=== PATIENT | male | born 1980 | race Caucasian/White ===

== ENCOUNTER 2020-06-27 20:18 | Inpatient (IN) | payer MEDICAID ==
[~2020-06-27] VITALS: Ht 185.4 cm; Wt 73.0 kg
[~2020-06-27 20:18] MED LIST: DIVA-80 PO; PANT-31 PO; TRAZ-257 PO
[2020-06-27 21:04] LABS: BASOPHILS % (AUTO) 1.2 % (0.0-2.0); EOSINOPHILS % (AUTO) 5.1 % (1.0-6.0); HEMATOCRIT 42.5 % (41-53); HEMOGLOBIN 14.3 g/dL (13.5-17.5); LYMPHOCYTES % (AUTO) 17.8 % (22.0-44.0); MEAN CORPUSCULAR HEMOGLOBIN 30.1 pg (26.0-34.0); MEAN CORPUSCULAR HGB CONC 33.7 G/dL (31.0-37.0); MEAN CORPUSCULAR VOLUME 89 fL (80-100); MONOCYTES # (AUTO) 0.4 K/uL (0.1-1.0); MONOCYTES % (AUTO) 6.8 % (2.0-9.0); NEUTROPHILS # (AUTO) 3.9 K/uL (1.8-7.7); NEUTROPHILS % (AUTO) 69.1 % (40.0-70.0); PLATELET COUNT (AUTO) 212 K/uL (150-450); RED BLOOD CELL COUNT(AUTO) 4.76 MIL/uL (4.50-5.90); RED CELL DISTRIBUTION WIDTH 13.1 % (11.5-14.5)
[2020-06-27 21:13] LABS: ANION GAP 11 mmol/L (8-16); CALCIUM, TOTAL 8.7 mg/dL (8.8-10.5); CARBON DIOXIDE 26 mmol/L (22-29); CHLORIDE 101 mmol/L (98-107); CREATININE 0.94 mg/dL (0.60-1.30); GLOMERULAR FILTR. RATE CALC > 60 mL/min (>60); GLUCOSE,RANDOM 145 mg/dL (70-110); POTASSIUM 3.8 mmol/L (3.5-5.1); SODIUM SERUM 138 mmol/L (136-145); UREA NITROGEN, BLOOD 14 mg/dL (7-18)
[2020-06-27 21:19] LABS: ALANINE AMINOTRANSFERASE 313 U/L (12-78); ALBUMIN 3.6 g/dL (3.4-5.0); ALKALINE PHOSPHATASE 95 U/L (46-116); ASPARTATE AMINOTRANSFERASE 217 U/L (15-37); BILIRUBIN,TOTAL 1.9 mg/dL (0.1-1.0)
[2020-06-27 21:30] LABS: VALPROIC ACID < 3 mcg/mL (50-100)
[2020-06-27] MEDS ORDERED: LORazepam 2 MG TABLET PO ONE (21:30)
[2020-06-27] MEDS ORDERED: HALOPERIDOL 5 MG TABLET PO ONE (21:30)
[2020-06-27] MEDS ORDERED: ZOLPIDEM TARTRATE 10 MG TABLET PO PRN (21:45)
[2020-06-27] MEDS ORDERED: HALOPERIDOL 5 MG TABLET PO PRN (21:45)
[2020-06-27 21:55] LABS: COVID AG,FIA SOURCE NASOPHARYNGEAL
[2020-06-28 03:59] VITALS: BP 113/75
[2020-06-28] MEDS ORDERED: PETROLATUM,WHITE 28 GM JELLY TP PRN (09:45)
[2020-06-28] MEDS ORDERED: BACITRACIN 28 GM OINTMENT TP PRN (09:45)
[2020-06-28] MEDS ORDERED: BENZOCAINE/MENTHOL LOZENGE PO PRN (09:45)
[2020-06-28] MEDS ORDERED: CloNIDine HCL 0.1 MG TABLET PO PRN (09:45)
[2020-06-28] MEDS ORDERED: MAGNESIUM HYDROXIDE SUSPENSION 30 ML UDCUP PO PRN (09:45)
[2020-06-28] MEDS ORDERED: DOCUSATE SODIUM 100 MG CAPSULE PO PRN (09:45)
[2020-06-28] MEDS ORDERED: LOPERAMIDE HCL 2 MG CAPSULE PO PRN (09:45)
[2020-06-28] MEDS ORDERED: OMEPRAZOLE 20 MG CAPSULE PO PRN (09:45)
[2020-06-28] MEDS ORDERED: ACETAMINOPHEN 325 MG TABLET PO PRN (09:45)
[2020-06-28] MEDS ORDERED: ALBUTEROL SULFATE HFA 90 MCG/PUFF 8 GM INHALER IH PRN (09:45)
[2020-06-28] MEDS ORDERED: IBUPROFEN 600 MG TABLET PO PRN (09:45)
[2020-06-28] MEDS ORDERED: MAG HYDROX/AL HYDROX/SIMETH ES 30 ML SUSPENSION UDCUP PO PRN (09:45)
[2020-06-28] MEDS ORDERED: ONDANSETRON HCL 4 MG TABLET PO PRN (09:45)
[2020-06-28] MEDS: RisperiDONE 1 MG TABLET PO SCH (16:24)
[2020-06-28] MEDS: DIVALPROEX SODIUM 500 MG DR TABLET PO SCH (16:24)
[2020-06-28 16:31] VITALS: BP 122/78
[2020-06-29] MEDS: DIVALPROEX SODIUM 500 MG DR TABLET PO SCH ×2 (10:59→16:48)
[2020-06-29] MEDS: RisperiDONE 1 MG TABLET PO SCH ×2 (10:59→16:48)
[2020-06-29] MEDS: LORazepam 2 MG TABLET PO PRN ×2 (11:05→16:52)
[2020-06-29 16:23] VITALS: BP 133/90
[2020-06-30] MEDS: LORazepam 2 MG TABLET PO PRN ×2 (00:57→09:19)
[2020-06-30 00:59] VITALS: BP 126/84
[2020-06-30 07:30] LABS: ALANINE AMINOTRANSFERASE 356 U/L (12-78); ALBUMIN 3.5 g/dL (3.4-5.0); ALKALINE PHOSPHATASE 80 U/L (46-116); AMYLASE 38 U/L (25-115); ANION GAP 11 mmol/L (8-16); ASPARTATE AMINOTRANSFERASE 250 U/L (15-37); BILIRUBIN,TOTAL 0.8 mg/dL (0.1-1.0); CALCIUM, TOTAL 9.1 mg/dL (8.8-10.5); CARBON DIOXIDE 26 mmol/L (22-29); CHLORIDE 100 mmol/L (98-107); GLOMERULAR FILTR. RATE CALC > 60 mL/min (>60); GLUCOSE,RANDOM 138 mg/dL (70-110); LIPASE 42 U/L (73-393); POTASSIUM 4.3 mmol/L (3.5-5.1); SODIUM SERUM 137 mmol/L (136-145); TOTAL PROTEIN, SERUM 7.3 g/dL (6.4-8.2); UREA NITROGEN, BLOOD 18 mg/dL (7-18)
[2020-06-30] MEDS: RisperiDONE 1 MG TABLET PO SCH ×2 (09:19→17:18)
[2020-06-30] MEDS: DIVALPROEX SODIUM 500 MG DR TABLET PO SCH ×2 (09:20→17:18)
[2020-06-30] MEDS ORDERED: DIVA-112 PO (13:30)
[2020-06-30] MEDS ORDERED: RISP1TAB48 PO (13:32)
== END 2020-06-30 16:15 | disposition home or self-care (01) | DRG 750 ==
LOC: EMS 20:18 → UNDOADMIN 22:00 → 3EI 22:00
PROVIDERS: ADMIT Psychiatry & Neurology Psychiatry; ATTEND Psychiatry & Neurology Psychiatry
DX: F25.9 Schizoaffective disorder, unspecified (principal); F10.231 Alcohol dependence with withdrawal delirium; R45.851 Suicidal ideations; K74.60 Unspecified cirrhosis of liver; F12.90 Cannabis use, unspecified, uncomplicated; F41.9 Anxiety disorder, unspecified; G47.00 Insomnia, unspecified; K59.00 Constipation, unspecified; K86.1 Other chronic pancreatitis; K21.9 Gastro-esophageal reflux disease without esophagitis; F17.210 Nicotine dependence, cigarettes, uncomplicated; F32.9 Major depressive disorder, single episode, unspecified; Z79.899 Other long term (current) drug therapy; Z20.822 Contact with and (suspected) exposure to COVID-19; Z90.49 Acquired absence of other specified parts of digestive tract
CPT/HCPCS: 80053; 80061; 80074; 80164; 82140; 82150; 83690; 85025; 87426; 99285; G0480

== ENCOUNTER 2020-10-28 20:35 | Inpatient (IN) | payer MEDICAID ==
[~2020-10-28] VITALS: Ht 185.4 cm; Wt 75.0 kg
[~2020-10-28 20:35] MED LIST changes: +DIVA-112 PO; -DIVA-80 PO; -PANT-31 PO; +RISP1TAB48 PO; -TRAZ-257 PO
[2020-10-28] MEDS ORDERED: TEMA15CA PO (20:47)
[2020-10-28] MEDS ORDERED: ZOLPIDEM TARTRATE 10 MG TABLET PO PRN (23:30)
[2020-10-28] MEDS ORDERED: RisperiDONE 1 MG TABLET PO ONE (23:30)
[2020-10-28] MEDS ORDERED: HALOPERIDOL 5 MG TABLET PO PRN (23:30)
[2020-10-28 23:38] LABS: BASOPHILS % (AUTO) 0.5 % (0.0-2.0); EOSINOPHILS % (AUTO) 1.3 % (1.0-6.0); HEMOGLOBIN 15.1 g/dL (13.5-17.5); LYMPHOCYTES # (AUTO) 1.5 K/uL (1.0-4.8); LYMPHOCYTES % (AUTO) 20.2 % (22.0-44.0); MEAN CORPUSCULAR HEMOGLOBIN 30.3 pg (26.0-34.0); MEAN CORPUSCULAR HGB CONC 34.4 G/dL (31.0-37.0); MEAN CORPUSCULAR VOLUME 88 fL (80-100); MONOCYTES # (AUTO) 0.8 K/uL (0.1-1.0); MONOCYTES % (AUTO) 10.3 % (2.0-9.0); NEUTROPHILS # (AUTO) 5.1 K/uL (1.8-7.7); NEUTROPHILS % (AUTO) 67.7 % (40.0-70.0); PLATELET COUNT (AUTO) 229 K/uL (150-450); RED BLOOD CELL COUNT(AUTO) 4.98 MIL/uL (4.50-5.90); RED CELL DISTRIBUTION WIDTH 13.7 % (11.5-14.5)
[2020-10-28 23:48] LABS: ANION GAP 6 mmol/L (8-16); CALCIUM, TOTAL 8.3 mg/dL (8.8-10.5); CARBON DIOXIDE 29 mmol/L (22-29); CHLORIDE 102 mmol/L (98-107); GLOMERULAR FILTR. RATE CALC > 60 mL/min (>60); GLUCOSE,RANDOM 149 mg/dL (70-110); POTASSIUM 3.6 mmol/L (3.5-5.1); SODIUM SERUM 137 mmol/L (136-145); UREA NITROGEN, BLOOD 8 mg/dL (7-18)
[2020-10-28 23:54] LABS: ALANINE AMINOTRANSFERASE 287 U/L (12-78); ALBUMIN 3.5 g/dL (3.4-5.0); ALKALINE PHOSPHATASE 154 U/L (46-116); ASPARTATE AMINOTRANSFERASE 213 U/L (15-37)
[2020-10-28 23:58] LABS: COVID AG,FIA SOURCE NASOPHARYNGEAL
[2020-10-29] VITALS (7 sets, daily range): BP systolic 106–140; BP diastolic 59–102
[2020-10-29 00:09] LABS: AMPHET/METH SCREEN,URINE POSITIVE (NEGATIVE); BARBITURATE SCREEN, URINE NEGATIVE (NEGATIVE); BENZODIAZEPINES SCREEN,URINE NEGATIVE (NEGATIVE); CANNABINOID SCREEN,URINE POSITIVE (NEGATIVE); COCAINE SCREEN,URINE NEGATIVE (NEGATIVE); METHADONE SCREEN, URINE NEGATIVE (NEGATIVE); OPIATE SCREEN,URINE NEGATIVE (NEGATIVE); PHENCYCLIDINE SCREEN,URINE NEGATIVE (NEGATIVE)
[2020-10-29] MEDS ORDERED: BACITRACIN 28 GM OINTMENT TP PRN (07:00)
[2020-10-29] MEDS ORDERED: ALBUTEROL SULFATE HFA 90 MCG/PUFF 8 GM INHALER IH PRN (07:00)
[2020-10-29] MEDS ORDERED: LOPERAMIDE HCL 2 MG CAPSULE PO PRN (07:00)
[2020-10-29] MEDS ORDERED: ACETAMINOPHEN 325 MG TABLET PO PRN (07:00)
[2020-10-29] MEDS ORDERED: MAG HYDROX/AL HYDROX/SIMETH ES 30 ML SUSPENSION UDCUP PO PRN (07:00)
[2020-10-29] MEDS ORDERED: DOCUSATE SODIUM 100 MG CAPSULE PO PRN (07:00)
[2020-10-29] MEDS ORDERED: OMEPRAZOLE 20 MG CAPSULE PO PRN (07:00)
[2020-10-29] MEDS ORDERED: MAGNESIUM HYDROXIDE SUSPENSION 30 ML UDCUP PO PRN (07:00)
[2020-10-29] MEDS ORDERED: BENZOCAINE/MENTHOL LOZENGE PO PRN (07:00)
[2020-10-29] MEDS ORDERED: CloNIDine HCL 0.1 MG TABLET PO PRN (07:00)
[2020-10-29] MEDS ORDERED: PETROLATUM,WHITE 28 GM JELLY TP PRN (07:00)
[2020-10-29] MEDS ORDERED: IBUPROFEN 600 MG TABLET PO PRN (07:00)
[2020-10-29] MEDS ORDERED: ONDANSETRON HCL 4 MG TABLET PO PRN (07:00)
[2020-10-29] MEDS: LORazepam 2 MG TABLET PO PRN ×3 (11:41→20:28)
[2020-10-30 00:19] VITALS: BP 105/67
[2020-10-30 00:30] VITALS: BP 105/67
[2020-10-30] MEDS: LORazepam 2 MG TABLET PO PRN ×2 (03:13→16:39)
[2020-10-30 04:04] VITALS: BP 139/86
[2020-10-30 08:28] VITALS: BP 116/73
[2020-10-30 16:27] VITALS: BP 127/82
[2020-10-30] MEDS: RisperiDONE 1 MG TABLET PO SCH (16:30)
[2020-10-30] MEDS: DIVALPROEX SODIUM 500 MG DR TABLET PO SCH (16:31)
[2020-10-30 18:45] VITALS: BP 127/82
[2020-10-31] MEDS: LORazepam 2 MG TABLET PO PRN ×4 (01:59→21:35)
[2020-10-31 06:31] VITALS: BP 118/72
[2020-10-31 06:38] VITALS: BP 118/72
[2020-10-31 08:31] VITALS: BP 124/70
[2020-10-31] MEDS: DIVALPROEX SODIUM 500 MG DR TABLET PO SCH ×2 (08:42→16:41)
[2020-10-31] MEDS: RisperiDONE 1 MG TABLET PO SCH ×2 (08:42→16:41)
[2020-10-31 16:00] VITALS: BP 118/78
[2020-10-31 16:29] VITALS: BP 118/78
[2020-11-01] VITALS: BP 122/70
[2020-11-01 02:46] VITALS: BP 118/72
[2020-11-01] MEDS: LORazepam 2 MG TABLET PO PRN ×2 (08:25→12:25)
[2020-11-01] MEDS: DIVALPROEX SODIUM 500 MG DR TABLET PO SCH ×2 (08:56→16:35)
[2020-11-01] MEDS: RisperiDONE 1 MG TABLET PO SCH ×2 (08:56→16:35)
[2020-11-01 09:13] VITALS: BP 116/80
[2020-11-01 11:58] VITALS: BP 116/80
[2020-11-01 16:26] VITALS: BP 106/66
== END 2020-11-01 16:45 | disposition home or self-care (01) | DRG 750 ==
LOC: EMS 20:39 → B3A 10-29 00:48
PROVIDERS: ADMIT Psychiatry & Neurology Psychiatry; ATTEND Psychiatry & Neurology Psychiatry
DX: F25.9 Schizoaffective disorder, unspecified (principal); F10.20 Alcohol dependence, uncomplicated; F15.10 Other stimulant abuse, uncomplicated; Y90.9 Presence of alcohol in blood, level not specified; F12.90 Cannabis use, unspecified, uncomplicated; R74.01 Elevation of levels of liver transaminase levels; F32.9 Major depressive disorder, single episode, unspecified; F41.0 Panic disorder [episodic paroxysmal anxiety]; G47.00 Insomnia, unspecified; I10 Essential (primary) hypertension; K59.00 Constipation, unspecified; Y90.6 Blood alcohol level of 120-199 mg/100 ml; F17.210 Nicotine dependence, cigarettes, uncomplicated; Z20.822 Contact with and (suspected) exposure to COVID-19; Z90.49 Acquired absence of other specified parts of digestive tract; Z71.51 Drug abuse counseling and surveillance of drug abuser; Z71.6 Tobacco abuse counseling
CPT/HCPCS: 80053; 80164; 83036; 85025; 99285; G0480

== ENCOUNTER 2022-08-04 21:07 | Inpatient (IN) | payer MEDICAID ==
[~2022-08-04] VITALS: Ht 185.4 cm; Wt 76.2 kg
[2022-08-05] VITALS (9 sets, daily range): BP systolic 117–141; BP diastolic 62–85; PULSE 60–85; RESP 16–19; TEMP 98.3–98.6; O2SAT 97–100
[2022-08-05] MEDS ORDERED: HALOPERIDOL 5 MG TABLET PO PRN (03:15)
[2022-08-05] MEDS ORDERED: ZOLPIDEM TARTRATE 10 MG TABLET PO PRN (03:15)
[2022-08-05] MEDS: LORazepam 2 MG TABLET PO PRN ×2 (05:11→09:15)
[2022-08-05] MEDS ORDERED: ACETAMINOPHEN 325 MG TABLET PO PRN ×2 (05:15→15:00)
[2022-08-05] MEDS ORDERED: LORazepam 2 MG/ML VIAL ONE (12:59)
[2022-08-05] MEDS ORDERED: HALOPERIDOL LACTATE 5 MG/ML VIAL IM ONE ×2 (13:00→13:15)
[2022-08-05] MEDS ORDERED: DiphenhydrAMINE HCL 50 MG/ML VIAL IM ONE (13:00)
[2022-08-05] MEDS ORDERED: LORazepam 2 MG/ML VIAL IM ONE (13:00)
[2022-08-05] MEDS ORDERED: DiphenhydrAMINE HCL 50 MG/ML VIAL ONE (13:00)
[2022-08-05] MEDS ORDERED: HALOPERIDOL LACTATE 5 MG/ML VIAL ONE (13:01)
[2022-08-05] MEDS ORDERED: GuaiFENesin/D-METHORPHAN [SUGAR-FREE] 200-20MG/10 ML SYRUP UDCUP PO PRN (15:00)
[2022-08-05] MEDS ORDERED: LORazepam 2 MG TABLET PO PRN (15:00)
[2022-08-05] MEDS ORDERED: TUBERCULIN, PURIFIED PROTEIN DERIVATIVE 5 TU/0.1 ML SYRINGE ID ONE (15:00)
[2022-08-05] MEDS ORDERED: HydrOXYzine PAMOATE 50 MG CAPSULE PO PRN (15:00)
[2022-08-05] MEDS ORDERED: LOPERAMIDE HCL 2 MG CAPSULE PO PRN (15:00)
[2022-08-05] MEDS ORDERED: MAGNESIUM HYDROXIDE SUSPENSION 30 ML UDCUP PO PRN (15:00)
[2022-08-05] MEDS ORDERED: MAG HYDROX/AL HYDROX/SIMETH ES 30 ML SUSPENSION UDCUP PO PRN (15:00)
[2022-08-05] MEDS ORDERED: CYANOCOBALAMIN 1,000 MCG/ML VIAL IM ONE (15:00)
[2022-08-05] MEDS ORDERED: PROMETHAZINE HCL 25 MG TABLET PO PRN (15:00)
[2022-08-05] MEDS ORDERED: OLANZapine 5 MG RAPDIS TABLET PO PRN (15:00)
[2022-08-05] MEDS: THIAMINE 100 MG TABLET PO SCH (17:00)
[2022-08-05] MEDS: OLANZapine 5 MG RAPDIS TABLET PO SCH (20:41)
[2022-08-05] MEDS: MELATONIN 5 MG TABLET PO SCH (20:41)
[2022-08-06 06:55] VITALS: BP 137/80; PULSE 75; RESP 18; TEMP 98.6; O2SAT 100
[2022-08-06] MEDS ORDERED: LORazepam 2 MG TABLET PO PRN (07:00)
[2022-08-06 09:00] VITALS: BP 137/72; PULSE 89; RESP 18; TEMP 98.6; O2SAT 96
[2022-08-06] MEDS: THIAMINE 100 MG TABLET PO SCH ×2 (09:28→17:21)
[2022-08-06] MEDS: OMEGA-3/DHA/EPA/FISH OIL 1,000 MG CAPSULE PO SCH (09:28)
[2022-08-06] MEDS: NALTREXONE HCL 50 MG TABLET PO SCH (09:28)
[2022-08-06] MEDS: MULTIVITAMINS WITH MINERALS, THERAPEUTIC TABLET PO SCH (09:29)
[2022-08-06] MEDS: FOLIC ACID 1 MG TABLET PO SCH (09:29)
[2022-08-06] MEDS: LORazepam 2 MG TABLET PO SCH ×4 (09:29→20:18)
[2022-08-06 11:00] VITALS: TEMP 98.6
[2022-08-06 15:00] VITALS: RESP 18; O2SAT 100
[2022-08-06 17:18] VITALS: BP 111/71; PULSE 82; RESP 18; TEMP 98.6; O2SAT 96
[2022-08-06 20:07] VITALS: RESP 20; TEMP 98.2
[2022-08-06] MEDS: MELATONIN 5 MG TABLET PO SCH (20:18)
[2022-08-06] MEDS: OLANZapine 5 MG RAPDIS TABLET PO SCH (20:18)
[2022-08-07 08:17] VITALS: BP 113/71; PULSE 70; RESP 18; TEMP 97.9; O2SAT 100
[2022-08-07] MEDS ORDERED: PALIPERIDONE PALMITATE 234 MG/1.5 ML SYRINGE IM ONE (09:00)
[2022-08-07] MEDS: LORazepam 2 MG TABLET PO SCH ×4 (09:39→20:36)
[2022-08-07] MEDS: OMEGA-3/DHA/EPA/FISH OIL 1,000 MG CAPSULE PO SCH (09:39)
[2022-08-07] MEDS: THIAMINE 100 MG TABLET PO SCH ×2 (09:40→17:20)
[2022-08-07] MEDS: MULTIVITAMINS WITH MINERALS, THERAPEUTIC TABLET PO SCH (09:40)
[2022-08-07] MEDS: NALTREXONE HCL 50 MG TABLET PO SCH (09:40)
[2022-08-07] MEDS: FOLIC ACID 1 MG TABLET PO SCH (09:40)
[2022-08-07] MEDS ORDERED: NALT50TA PO (15:44)
[2022-08-07] MEDS ORDERED: DIVA500T69 PO (15:44)
[2022-08-07] MEDS ORDERED: MELA5TAB40 PO (15:44)
[2022-08-07] MEDS ORDERED: OMEG-135 PO (15:44)
[2022-08-07] MEDS ORDERED: OLAN5TAB94 PO (15:44)
[2022-08-07 16:31] VITALS: BP 105/60; PULSE 69; RESP 17; TEMP 97.9; O2SAT 100
[2022-08-07 17:18] VITALS: BP 105/60; RESP 17; O2SAT 100
[2022-08-07 20:22] VITALS: BP 110/63; PULSE 77; RESP 18; TEMP 97.6; O2SAT 96
[2022-08-07] MEDS: OLANZapine 5 MG RAPDIS TABLET PO SCH (20:34)
[2022-08-07] MEDS: MELATONIN 5 MG TABLET PO SCH (20:34)
[2022-08-07] MEDS ORDERED: DIVALPROEX SODIUM 500 MG ER TABLET PO SCH (21:00)
[2022-08-08] MEDS ORDERED: LORazepam 1 MG TABLET PO PRN (07:00)
[2022-08-08 08:23] VITALS: BP 120/79; PULSE 83; RESP 18; TEMP 97.5; O2SAT 100
[2022-08-08] MEDS: OMEGA-3/DHA/EPA/FISH OIL 1,000 MG CAPSULE PO SCH (08:24)
[2022-08-08] MEDS: FOLIC ACID 1 MG TABLET PO SCH (08:24)
[2022-08-08] MEDS: THIAMINE 100 MG TABLET PO SCH (08:24)
[2022-08-08] MEDS: NALTREXONE HCL 50 MG TABLET PO SCH (08:24)
[2022-08-08] MEDS: MULTIVITAMINS WITH MINERALS, THERAPEUTIC TABLET PO SCH (08:24)
[2022-08-08] MEDS ORDERED: LORazepam 1 MG TABLET PO SCH (09:00)
[2022-08-08 09:13] LABS: CHOL/HDL RATIO 3.1 (4.2-7.3); FREE T4 (FREE THYROXINE) 0.82 ng/dL (0.76-1.46); THYROID STIMULATING HORMONE 1.53 uIU/mL (0.36-3.74)
[2022-08-08 09:47] LABS: HEMOGLOBIN A1C 5.8 % (3.8-5.6)
[2022-08-08] MEDS ORDERED: LOPERAMIDE HCL 2 MG CAPSULE PO PRN (15:00)
[2022-08-08] MEDS ORDERED: VARE1TAB25 PO (16:28)
[2022-08-09] MEDS ORDERED: LORazepam 1 MG TABLET PO PRN (07:00)
[2022-08-09 08:07] LABS: HEPATITIS C AB (EIA) Reactive (Non Reactive)
[2022-08-11] MEDS ORDERED: PALIPERIDONE PALMITATE 156 MG/ML SYRINGE IM ONE (09:00)
[2022-08-11 11:07] LABS: HEPATITIS C RT-PCR,QNT HCV Not Detected IU/mL
== END 2022-08-08 12:45 | disposition home or self-care (01) | DRG 750 ==
LOC: B2S 08-05 04:33
PROVIDERS: ADMIT Psychiatry & Neurology Psychiatry; ATTEND Psychiatry & Neurology Psychiatry
DX: F25.9 Schizoaffective disorder, unspecified (principal); G93.41 Metabolic encephalopathy; B19.20 Unspecified viral hepatitis C without hepatic coma; J44.9 Chronic obstructive pulmonary disease, unspecified; F17.210 Nicotine dependence, cigarettes, uncomplicated; D64.9 Anemia, unspecified; F10.20 Alcohol dependence, uncomplicated; F19.20 Other psychoactive substance dependence, uncomplicated; F43.10 Post-traumatic stress disorder, unspecified; K21.9 Gastro-esophageal reflux disease without esophagitis; Z59.00 Homelessness unspecified; Z79.899 Other long term (current) drug therapy
CPT/HCPCS: 80061; 83036; 84439; 84443; 86592; 86803; 87081; 87340; 87522; J1200; J1630; J2060; J3420; Q9967

== ENCOUNTER 2022-08-04 23:02 | Emergency (ER) | payer MEDICAID ==
[~2022-08-04] VITALS: Ht 185.4 cm; Wt 73.0 kg
[2022-08-04 23:10] VITALS: TEMP 98.6
[2022-08-04 23:28] LABS: BASOPHILS % (AUTO) 0.9 % (0.0-2.0); EOSINOPHILS % (AUTO) 2.4 % (1.0-6.0); HEMATOCRIT 39.8 % (41-53); LYMPHOCYTES % (AUTO) 27.9 % (22.0-44.0); MEAN CORPUSCULAR HEMOGLOBIN 29.4 pg (26.0-34.0); MEAN CORPUSCULAR HGB CONC 32.6 G/dL (31.0-37.0); MEAN CORPUSCULAR VOLUME 90 fL (80-100); MONOCYTES # (AUTO) 0.8 K/uL (0.1-1.0); MONOCYTES % (AUTO) 11.3 % (2.0-9.0); NEUTROPHILS # (AUTO) 4.1 K/uL (1.8-7.7); NEUTROPHILS % (AUTO) 57.5 % (40.0-70.0); PLATELET COUNT (AUTO) 295 K/uL (150-450); RED CELL DISTRIBUTION WIDTH 13.8 % (11.5-14.5)
[2022-08-04 23:31] LABS: COVID AG,FIA SOURCE NASOPHARYNGEAL
[2022-08-04 23:36] LABS: AMPHET/METH SCREEN,URINE POSITIVE (NEGATIVE); BARBITURATE SCREEN, URINE NEGATIVE (NEGATIVE); BENZODIAZEPINES SCREEN,URINE POSITIVE (NEGATIVE); CANNABINOID SCREEN,URINE POSITIVE (NEGATIVE); COCAINE SCREEN,URINE NEGATIVE (NEGATIVE); METHADONE SCREEN, URINE NEGATIVE (NEGATIVE); OPIATE SCREEN,URINE NEGATIVE (NEGATIVE); PHENCYCLIDINE SCREEN,URINE NEGATIVE (NEGATIVE)
[2022-08-04 23:38] LABS: ANION GAP 7 mmol/L (8-16); CALCIUM, TOTAL 8.7 mg/dL (8.8-10.5); CARBON DIOXIDE 31 mmol/L (22-29); CHLORIDE 102 mmol/L (98-107); GLOMERULAR FILTR. RATE CALC > 60 mL/min (>60); GLUCOSE,RANDOM 137 mg/dL (70-110); POTASSIUM 3.7 mmol/L (3.5-5.1); SODIUM SERUM 140 mmol/L (136-145)
[2022-08-04 23:44] LABS: ALANINE AMINOTRANSFERASE 47 U/L (12-78); ALBUMIN 3.4 g/dL (3.4-5.0); ALKALINE PHOSPHATASE 75 U/L (46-116); ASPARTATE AMINOTRANSFERASE 43 U/L (15-37); BILIRUBIN,TOTAL 0.8 mg/dL (0.1-1.0); TOTAL PROTEIN, SERUM 6.6 g/dL (6.4-8.2); VALPROIC ACID < 3 mcg/mL (50-100)
[2022-08-05 00:48] LABS: ACETAMINOPHEN < 2 mcg/mL (10-30); SALICYLATE 0.9 mg/dL (2.8-20.0)
[2022-08-05] MEDS ORDERED: ChlordiazePOXIDE HCL 25 MG CAPSULE PO ONE (01:15)
[2022-08-05 03:17] VITALS: BP 122/76; PULSE 66; RESP 17
== END 2022-08-05 06:37 | disposition home or self-care (01) ==
LOC: EMS 23:07
DX: F25.9 Schizoaffective disorder, unspecified (principal); F10.20 Alcohol dependence, uncomplicated; F41.9 Anxiety disorder, unspecified; G40.909 Epilepsy, unspecified, not intractable, without status epilepticus; F32.A Depression, unspecified; F17.210 Nicotine dependence, cigarettes, uncomplicated; F12.90 Cannabis use, unspecified, uncomplicated; F15.90 Other stimulant use, unspecified, uncomplicated; Z90.49 Acquired absence of other specified parts of digestive tract; Z20.822 Contact with and (suspected) exposure to COVID-19
CPT/HCPCS: 99283; 87426; 80053; 80164; 85025; 36415; 80307; G0480; G0481

== ENCOUNTER 2022-09-24 22:53 | Inpatient (IN) | payer MEDICAID ==
[~2022-09-24] VITALS: Ht 185.4 cm; Wt 77.1 kg
[~2022-09-24 22:53] MED LIST changes: -DIVA-112 PO; +DIVA500T69 PO; +MELA5TAB40 PO; +NALT50TA PO; +OLAN5TAB94 PO; +OMEG-135 PO; -RISP1TAB48 PO; +VARE1TAB25 PO
[2022-09-25 05:11] VITALS: BP 112/81; PULSE 95; RESP 18; TEMP 97.7
[2022-09-25] MEDS: LORazepam 2 MG TABLET PO PRN ×2 (06:43→16:23)
[2022-09-25 08:34] VITALS: BP 119/89; PULSE 96; RESP 18; TEMP 97.6; O2SAT 97
[2022-09-25] MEDS ORDERED: PETROLATUM,WHITE 28 GM JELLY TP PRN (08:45)
[2022-09-25] MEDS ORDERED: CloNIDine HCL 0.1 MG TABLET PO PRN (08:45)
[2022-09-25] MEDS ORDERED: ALBUTEROL SULFATE HFA 90 MCG/PUFF 8 GM INHALER IH PRN (08:45)
[2022-09-25] MEDS ORDERED: ACETAMINOPHEN 325 MG TABLET PO PRN (08:45)
[2022-09-25] MEDS ORDERED: IBUPROFEN 600 MG TABLET PO PRN (08:45)
[2022-09-25] MEDS ORDERED: BENZOCAINE/MENTHOL LOZENGE PO PRN (08:45)
[2022-09-25] MEDS ORDERED: BACITRACIN 28 GM OINTMENT TP PRN (08:45)
[2022-09-25] MEDS ORDERED: MAG HYDROX/AL HYDROX/SIMETH ES 30 ML SUSPENSION UDCUP PO PRN (08:45)
[2022-09-25] MEDS ORDERED: LOPERAMIDE HCL 2 MG CAPSULE PO PRN (08:45)
[2022-09-25] MEDS ORDERED: DOCUSATE SODIUM 100 MG CAPSULE PO PRN (08:45)
[2022-09-25] MEDS ORDERED: MAGNESIUM HYDROXIDE SUSPENSION 30 ML UDCUP PO PRN (08:45)
[2022-09-25] MEDS ORDERED: ONDANSETRON HCL 4 MG TABLET PO PRN (08:45)
[2022-09-25] MEDS ORDERED: OMEPRAZOLE 20 MG CAPSULE PO PRN (08:45)
[2022-09-25] MEDS: NICOTINE 21 MG/24 HOUR PATCH TD SCH ×2 (09:00→10:25)
[2022-09-25 20:29] VITALS: BP 114/86; PULSE 88; RESP 17; TEMP 97.8; O2SAT 99
[2022-09-25] MEDS: OLANZapine 10 MG RAPDIS TABLET PO SCH (21:41)
[2022-09-26 01:00] VITALS: BP 122/76; PULSE 100; RESP 18; TEMP 97.8; O2SAT 98
[2022-09-26 08:09] LABS: CHOL/HDL RATIO 2.5 (4.2-7.3); HEMOGLOBIN A1C 5.4 % (3.8-5.6); THYROID STIMULATING HORMONE 3.93 uIU/mL (0.36-3.74)
[2022-09-26 08:42] VITALS: BP 111/62; PULSE 74; RESP 17; TEMP 98.2; O2SAT 98
[2022-09-26] MEDS: NICOTINE 21 MG/24 HOUR PATCH TD SCH (09:00)
[2022-09-26] MEDS: DIVALPROEX SODIUM 500 MG ER TABLET PO SCH (09:39)
[2022-09-26] MEDS: LORazepam 2 MG TABLET PO PRN ×3 (10:44→21:35)
[2022-09-26] MEDS: VARENICLINE TARTRATE 1 MG TABLET PO SCH (17:00)
[2022-09-26] MEDS: OLANZapine 10 MG RAPDIS TABLET PO SCH (20:02)
[2022-09-26 21:21] VITALS: BP 113/66; PULSE 98; RESP 19; TEMP 97.7; O2SAT 95
[2022-09-27 09:00] VITALS: BP 105/75; PULSE 108; RESP 20; TEMP 97.8; O2SAT 94
[2022-09-27] MEDS: OMEGA-3/DHA/EPA/FISH OIL 1,000 MG CAPSULE PO SCH (09:00)
[2022-09-27] MEDS: DIVALPROEX SODIUM 500 MG ER TABLET PO SCH (09:00)
[2022-09-27] MEDS: NICOTINE 21 MG/24 HOUR PATCH TD SCH (09:00)
[2022-09-27] MEDS: VARENICLINE TARTRATE 1 MG TABLET PO SCH ×2 (09:00→16:49)
[2022-09-27] MEDS: LORazepam 2 MG TABLET PO PRN ×2 (14:13→19:51)
[2022-09-27] MEDS: OLANZapine 10 MG RAPDIS TABLET PO SCH (20:17)
[2022-09-27 20:31] VITALS: BP 107/64; PULSE 89; RESP 21; TEMP 98.3; O2SAT 98
[2022-09-28 08:34] VITALS: BP 100/61; PULSE 89; RESP 18; TEMP 97.8; O2SAT 99
[2022-09-28] MEDS: VARENICLINE TARTRATE 1 MG TABLET PO SCH ×2 (08:50→16:48)
[2022-09-28] MEDS: NICOTINE 21 MG/24 HOUR PATCH TD SCH (08:50)
[2022-09-28] MEDS: OMEGA-3/DHA/EPA/FISH OIL 1,000 MG CAPSULE PO SCH (08:50)
[2022-09-28] MEDS: LORazepam 1 MG TABLET PO PRN ×2 (14:19→20:04)
[2022-09-28 20:17] VITALS: BP 100/66; PULSE 79; RESP 17; TEMP 98; O2SAT 96
[2022-09-28] MEDS: OLANZapine 10 MG RAPDIS TABLET PO SCH (20:43)
[2022-09-28] MEDS: DIVALPROEX SODIUM 500 MG ER TABLET PO SCH (20:43)
[2022-09-29 08:45] VITALS: BP 109/18; PULSE 72; RESP 19; TEMP 98; O2SAT 100
[2022-09-29] MEDS: NICOTINE 21 MG/24 HOUR PATCH TD SCH (09:00)
[2022-09-29] MEDS: OMEGA-3/DHA/EPA/FISH OIL 1,000 MG CAPSULE PO SCH (09:28)
[2022-09-29] MEDS: VARENICLINE TARTRATE 1 MG TABLET PO SCH ×2 (09:29→16:32)
[2022-09-29] MEDS: LORazepam 1 MG TABLET PO PRN (14:21)
[2022-09-29] MEDS: HALOPERIDOL 10 MG TABLET PO PRN ×2 (14:28→20:09)
[2022-09-29] MEDS: ZOLPIDEM TARTRATE 10 MG TABLET PO PRN (20:08)
[2022-09-29] MEDS: DIVALPROEX SODIUM 500 MG ER TABLET PO SCH (20:09)
[2022-09-29] MEDS: OLANZapine 10 MG RAPDIS TABLET PO SCH (20:09)
[2022-09-29 20:49] VITALS: BP 113/74; PULSE 88; RESP 19; TEMP 97.4; O2SAT 100
[2022-09-30 08:39] VITALS: BP 104/58; PULSE 82; RESP 17; TEMP 97.7; O2SAT 97
[2022-09-30] MEDS: VARENICLINE TARTRATE 1 MG TABLET PO SCH ×2 (09:00→16:34)
[2022-09-30] MEDS: OMEGA-3/DHA/EPA/FISH OIL 1,000 MG CAPSULE PO SCH (09:00)
[2022-09-30 20:14] VITALS: BP 110/64; PULSE 99; RESP 19; TEMP 98.1; O2SAT 97
[2022-09-30] MEDS: DIVALPROEX SODIUM 500 MG ER TABLET PO SCH (20:32)
[2022-09-30] MEDS: OLANZapine 10 MG RAPDIS TABLET PO SCH (20:32)
[2022-09-30] MEDS: ZOLPIDEM TARTRATE 10 MG TABLET PO PRN (20:45)
[2022-10-01] MEDS: OMEGA-3/DHA/EPA/FISH OIL 1,000 MG CAPSULE PO SCH (09:00)
[2022-10-01] MEDS: VARENICLINE TARTRATE 1 MG TABLET PO SCH ×2 (09:00→16:40)
[2022-10-01] MEDS: HALOPERIDOL 10 MG TABLET PO PRN (18:28)
[2022-10-01 20:36] VITALS: BP 115/72; PULSE 98; RESP 18; TEMP 97.8; O2SAT 97
[2022-10-01] MEDS: DIVALPROEX SODIUM 500 MG ER TABLET PO SCH (20:36)
[2022-10-01] MEDS: OLANZapine 10 MG RAPDIS TABLET PO SCH (20:36)
[2022-10-01] MEDS: ZOLPIDEM TARTRATE 10 MG TABLET PO PRN (20:53)
[2022-10-02 08:41] VITALS: BP 103/61; PULSE 69; RESP 19; TEMP 98; O2SAT 96
[2022-10-02] MEDS: VARENICLINE TARTRATE 1 MG TABLET PO SCH ×2 (09:00→17:00)
[2022-10-02] MEDS: OMEGA-3/DHA/EPA/FISH OIL 1,000 MG CAPSULE PO SCH (09:48)
[2022-10-02] MEDS: DIVALPROEX SODIUM 500 MG ER TABLET PO SCH (20:01)
[2022-10-02] MEDS: OLANZapine 10 MG RAPDIS TABLET PO SCH (20:01)
[2022-10-02 20:44] VITALS: BP 113/69; PULSE 93; RESP 19; TEMP 97.7; O2SAT 97
[2022-10-02] MEDS: HALOPERIDOL 10 MG TABLET PO PRN (21:11)
[2022-10-02] MEDS: ZOLPIDEM TARTRATE 10 MG TABLET PO PRN (21:11)
[2022-10-03] MEDS: VARENICLINE TARTRATE 1 MG TABLET PO SCH ×3 (08:24→17:00)
[2022-10-03] MEDS: OMEGA-3/DHA/EPA/FISH OIL 1,000 MG CAPSULE PO SCH (08:24)
[2022-10-03 09:05] VITALS: BP 106/63; PULSE 78; RESP 17; TEMP 97.9; O2SAT 96
[2022-10-03] MEDS: OLANZapine 10 MG RAPDIS TABLET PO SCH (20:02)
[2022-10-03] MEDS: HALOPERIDOL 10 MG TABLET PO PRN (20:06)
[2022-10-03] MEDS: DIVALPROEX SODIUM 500 MG ER TABLET PO SCH (20:06)
[2022-10-03 20:31] VITALS: BP 102/66; PULSE 89; RESP 18; TEMP 98.1; O2SAT 96
[2022-10-03] MEDS: ZOLPIDEM TARTRATE 10 MG TABLET PO PRN (21:05)
[2022-10-04] MEDS: VARENICLINE TARTRATE 1 MG TABLET PO SCH ×2 (09:00→17:00)
[2022-10-04 09:25] VITALS: BP 107/61; PULSE 77; RESP 16; TEMP 98.1; O2SAT 96
[2022-10-04] MEDS: OMEGA-3/DHA/EPA/FISH OIL 1,000 MG CAPSULE PO SCH (09:36)
[2022-10-04] MEDS: OLANZapine 10 MG RAPDIS TABLET PO SCH (20:16)
[2022-10-04] MEDS: DIVALPROEX SODIUM 500 MG ER TABLET PO SCH (20:16)
[2022-10-04] MEDS: HALOPERIDOL 10 MG TABLET PO PRN (20:22)
[2022-10-04 20:44] VITALS: BP 109/82; PULSE 92; RESP 18; TEMP 98.3; O2SAT 95
[2022-10-05 08:30] VITALS: BP 106/68; PULSE 67; RESP 18; TEMP 97.6; O2SAT 97
[2022-10-05] MEDS: VARENICLINE TARTRATE 1 MG TABLET PO SCH (09:00)
[2022-10-05] MEDS: OMEGA-3/DHA/EPA/FISH OIL 1,000 MG CAPSULE PO SCH (09:55)
[2022-10-05] MEDS: DIVALPROEX SODIUM 500 MG ER TABLET PO SCH (20:14)
[2022-10-05] MEDS: OLANZapine 10 MG RAPDIS TABLET PO SCH (20:18)
[2022-10-05 20:31] VITALS: BP 111/79; PULSE 85; RESP 18; TEMP 98; O2SAT 95
[2022-10-05] MEDS: HALOPERIDOL 10 MG TABLET PO PRN (20:56)
[2022-10-06 08:33] VITALS: BP 109/59; PULSE 71; RESP 18; TEMP 98.2; O2SAT 98
[2022-10-06] MEDS: OMEGA-3/DHA/EPA/FISH OIL 1,000 MG CAPSULE PO SCH (09:21)
[2022-10-06] MEDS ORDERED: MELATONIN 5 MG TABLET PO SCH (21:00)
== END 2022-10-06 14:25 | disposition home or self-care (01) | DRG 750 ==
LOC: B2S 09-25 03:10
PROVIDERS: ADMIT Psychiatry & Neurology Psychiatry; ATTEND Psychiatry & Neurology Psychiatry
DX: F25.9 Schizoaffective disorder, unspecified (principal); R45.851 Suicidal ideations; F10.10 Alcohol abuse, uncomplicated; I10 Essential (primary) hypertension; F41.9 Anxiety disorder, unspecified; F32.A Depression, unspecified; G47.00 Insomnia, unspecified; F19.10 Other psychoactive substance abuse, uncomplicated; K59.00 Constipation, unspecified; R74.01 Elevation of levels of liver transaminase levels; Z79.899 Other long term (current) drug therapy
CPT/HCPCS: 80061; 80164; 82140; 83036; 84443; 87081; Q9967

== ENCOUNTER 2023-02-19 14:57 | Inpatient (IN) | payer MEDICAID ==
[~2023-02-19] VITALS: Ht 185.4 cm; Wt 74.0 kg
[2023-02-19] VITALS (7 sets, daily range): BP systolic 118–139; BP diastolic 76–80; PULSE 85–100; RESP 16–18; TEMP 97.5–98.3; O2SAT 97–99
[~2023-02-19 14:57] MED LIST changes: -NALT50TA PO; -VARE1TAB25 PO
[2023-02-19] MEDS ORDERED: HALOPERIDOL 5 MG TABLET PO PRN (15:45)
[2023-02-19] MEDS ORDERED: ZOLPIDEM TARTRATE 10 MG TABLET PO PRN (15:45)
[2023-02-19] MEDS: LORazepam 2 MG TABLET PO PRN (21:42)
[2023-02-19] MEDS ORDERED: INFLUENZA VIRUS VACCINE QVS 2023-24 (6MO+)/PF 60 MCG/0.5 ML SYRINGE IM. ONE (22:45)
[2023-02-19] MEDS ORDERED: PNEUMOCOCCAL VACCINE POLYVALENT 0.5 ML SYRINGE [PPSV23] IM. ONE (22:45)
[2023-02-20] VITALS (8 sets, daily range): BP systolic 118–136; BP diastolic 71–90; PULSE 83–116; RESP 16–18; TEMP 97.3–97.8; O2SAT 96–98
[2023-02-20] MEDS: LORazepam 2 MG TABLET PO PRN ×3 (02:33→16:43)
[2023-02-20] MEDS ORDERED: CloNIDine HCL 0.1 MG TABLET PO PRN (10:30)
[2023-02-20] MEDS ORDERED: ALBUTEROL SULFATE HFA 90 MCG/PUFF 8 GM INHALER IH PRN (10:30)
[2023-02-20] MEDS ORDERED: ACETAMINOPHEN 325 MG TABLET PO PRN (10:30)
[2023-02-20] MEDS ORDERED: DOCUSATE SODIUM 100 MG CAPSULE PO PRN (10:30)
[2023-02-20] MEDS ORDERED: PETROLATUM,WHITE 28 GM JELLY TP PRN (10:30)
[2023-02-20] MEDS ORDERED: MAGNESIUM HYDROXIDE SUSPENSION 30 ML UDCUP PO PRN (10:30)
[2023-02-20] MEDS ORDERED: IBUPROFEN 400 MG TABLET PO PRN (10:30)
[2023-02-20] MEDS ORDERED: ONDANSETRON HCL 4 MG TABLET PO PRN (10:30)
[2023-02-20] MEDS ORDERED: NICOTINE 14 MG/24 HOUR PATCH TD PRN (10:30)
[2023-02-20] MEDS ORDERED: MAG HYDROX/ALUMINUM HYD/SIMETH ES 30 ML SUSPENSION UDCUP PO PRN (10:30)
[2023-02-20] MEDS ORDERED: LOPERAMIDE HCL 2 MG CAPSULE PO PRN (10:30)
[2023-02-20] MEDS ORDERED: GuaiFENesin/D-METHORPHAN [SUGAR-FREE] 200-20MG/10 ML SYRUP UDCUP PO PRN (10:30)
[2023-02-20] MEDS ORDERED: ChlordiazePOXIDE HCL 25 MG CAPSULE PO PRN (12:45)
[2023-02-20] MEDS ORDERED: DIVALPROEX SODIUM 500 MG ER TABLET PO SCH (21:00)
[2023-02-20] MEDS ORDERED: MELATONIN 5 MG TABLET PO SCH (21:00)
[2023-02-20] MEDS ORDERED: OLANZapine 10 MG TABLET PO SCH (21:00)
[2023-02-21 00:56] VITALS: BP 118/80; PULSE 85; RESP 17; TEMP 97.5; O2SAT 98
[2023-02-21 05:00] VITALS: BP 115/75; PULSE 88; RESP 18; TEMP 97.6; O2SAT 98
[2023-02-21] MEDS ORDERED: ChlordiazePOXIDE HCL 25 MG CAPSULE PO PRN (07:00)
[2023-02-21 08:22] VITALS: BP 118/71; PULSE 80; RESP 17; TEMP 97.4; O2SAT 96
[2023-02-21] MEDS ORDERED: OMEGA-3/DHA/EPA/FISH OIL 1,000 MG CAPSULE PO SCH (09:00)
[2023-02-21] MEDS: ChlordiazePOXIDE HCL 25 MG CAPSULE PO SCH ×2 (09:28→13:04)
[2023-02-21 12:47] VITALS: BP 118/76; PULSE 87; RESP 17; TEMP 97.6; O2SAT 97
[2023-02-23] MEDS ORDERED: ChlordiazePOXIDE HCL 10 MG CAPSULE PO PRN (07:00)
[2023-02-23] MEDS ORDERED: ChlordiazePOXIDE HCL 10 MG CAPSULE PO SCH (09:00)
[2023-02-24] MEDS ORDERED: ChlordiazePOXIDE HCL 10 MG CAPSULE PO PRN (07:00)
== END 2023-02-21 17:24 | disposition left against medical advice (07) | DRG 750 ==
LOC: B2S 18:22
PROVIDERS: ADMIT Psychiatry & Neurology Psychiatry; ATTEND Psychiatry & Neurology Psychiatry
DX: F25.1 Schizoaffective disorder, depressive type (principal); F12.90 Cannabis use, unspecified, uncomplicated; Z59.00 Homelessness unspecified; F15.90 Other stimulant use, unspecified, uncomplicated; F13.90 Sedative, hypnotic, or anxiolytic use, unspecified, uncomplicated; Z53.29 Procedure and treatment not carried out because of patient's decision for other reasons
CPT/HCPCS: Q9967; Z7610